=== PATIENT | female | born 2000 ===

== ENCOUNTER → 2024-10-11 | Outpatient (CLI) | payer OTHER ==
[2024-10-14 14:33] LABS: APTIMA MEDIA TYPE Urine; C. TRACHOMATIS BY TMA Negative (Negative); N. GONORRHOEAE BY TMA Negative (Negative)
== END | disposition home or self-care (01) ==
LOC: LAB SHORT 18:21 → LAB 18:21
PROVIDERS: Family Medicine
DX: Z11.3 Encounter for screening for infections with a predominantly sexual mode of transmission (principal)
CPT/HCPCS: 87491; 87591

== ENCOUNTER → 2024-12-06 | Outpatient (CLI) | payer OTHER | LOC: LAB SHORT 17:33 → LAB 17:33 | DX: R31.9 Hematuria, unspecified (principal) | CPT/HCPCS: 87086 ==

== ENCOUNTER → 2024-12-10 | Outpatient (CLI) | payer OTHER ==
[2024-12-10 16:29] LABS: Source, Urine Clean Catch
[2024-12-10 18:51] LABS: Bilirubin, Urine Neg (Neg); Color, Urine Yellow (P-Yellow); Glucose Qualitative, Urine Neg (Neg); Ketones, Urine Neg (Neg); Leukocyte Esterase, Urine 1+ (Neg); Protein, Urine 2+ (Neg); Specific Gravity, Urine 1.020 (1.003-1.022); Urobilinogen, Urine NORM (Normal)
== END ==
LOC: LAB 16:27 → LAB SHORT 16:27
PROVIDERS: Family Medicine
DX: R82.90 Unspecified abnormal findings in urine (principal)
CPT/HCPCS: 81001; 87086

== ENCOUNTER → 2025-02-21 | Outpatient (CLI) | payer OTHER | LOC: LAB SHORT 15:34 → LAB 15:34 | DX: O99.213 Obesity complicating pregnancy, third trimester (principal); O44.43 Low lying placenta NOS or without hemorrhage, third trimester; E66.9 Obesity, unspecified | CPT/HCPCS: 87081; 87150 ==